=== PATIENT | female | born 1970 | race Caucasian/White ===

== ENCOUNTER 2017-07-31 20:20 | Emergency (ER) | payer BC ==
[~2017-07-31] VITALS: Ht 152.4 cm; Wt 54.4 kg
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
[~2017-07-31 20:20] MED LIST: CATAFLAM50 MG PO; FLEXERIL10 MG PO; PROZAC PO; SEROQUEL PO; ULTRAM PO; VOLTAREN50 MG PO; XANAX2 MG PO
[2017-07-31] MEDS ORDERED: ROXICODONE15 MG PO (20:46)
[2017-07-31] MEDS ORDERED: TEMAZEPAM30 MG PO (20:46)
[2017-07-31] MEDS ORDERED: TOPAMAX50 MG PO (20:46)
[2017-07-31] MEDS ORDERED: SINGULAIR5 MG PO (20:47)
== END 2017-08-01 00:15 | disposition home or self-care (01) ==
LOC: SED 20:20
DX: S16.1XXA Strain of muscle, fascia and tendon at neck level, initial encounter (principal); S00.33XA Contusion of nose, initial encounter; F41.9 Anxiety disorder, unspecified; F32.9 Major depressive disorder, single episode, unspecified; F17.210 Nicotine dependence, cigarettes, uncomplicated; Z88.5 Allergy status to narcotic agent; Z88.8 Allergy status to other drugs, medicaments and biological substances; Y04.2XXA Assault by strike against or bumped into by another person, initial encounter; Y92.009 Unspecified place in unspecified non-institutional (private) residence as the place of occurrence of the external cause
CPT/HCPCS: 70160; 72040; 96372; 99284; J1885